=== PATIENT | male | born 1965 | race Caucasian/White ===

== ENCOUNTER 2025-02-04 10:52 | Inpatient (IN) ==
--- NOTE | 2025-01-02 09:29 | PAT Medication Instructions ---
Medication Instructions Date of Service January 02, 2025 Home Medications acetaminophen 500 mg capsule 1,000 mg PO Q8H PRN Pain carbidopa 87.5 mg-levodopa ER 350 mg capsule,immed and extend release (Crexont) 2 cap PO 5XD losartan 50 mg tablet 25 mg PO BID Continue as directed acetaminophen 500 mg capsule 1,000 mg PO Q8H PRN Pain (if needed) carbidopa 87.5 mg-levodopa ER 350 mg capsule,immed and extend release (Crexont) 2 cap PO 5XD DO NOT take the morning of surgery losartan 50 mg tablet 25 mg PO BID MORNING OF SURGERY: NOTHING TO EAT OR DRINK AFTER MIDNIGHT Other Notes If you have any questions please call us at [phone] or [phone] or [phone] or [phone]
--- NOTE | 2025-01-09 10:28 | Anesthesiology Consultation ---
Date of Service January 09, 2025 Assessment & Plan (1) Encounter for pre-operative examination: - time schedule for Parkinson medication regimen as confirmed in EMR. I listened to their concerns regarding patient receiving medications on time in clinic. I advised that he continue his home medication as advised prior to surgery and that past surgery management will be to nursing staff/Dr. Alfred's management. They plan to bring his home medications to hospital to give to nursing with emphasis that he receives medications at specific timing per his neurologist. They declined day of surgery request if his wanted to remain overnight. They are aware anesthesia/PAT cannot manage this after surgery, they expressed appreciation for discussion and denied additional questions or concerns. Chart Review Chart Review: Acceptable Risk for Surgery and Patient seen in Pre Admission Testing Teaching & Discussion Pre-Anesthesia Teaching/Discussion Notes: Instructed NPO after midnight before surgery, except medications with 15 cc of water. Medication instructions provided according to the PAT guidelines. History Surgery Operation Date: 02/04/25 10:05 Proposed Procedures p L3-L5 Decompression and Fusion - Kael Alfred, Height/Weight Height: 5 ft 10 in Weight: 91.8 kg Allergies Allergy/AdvReac Type Severity Reaction Status Date / Time meperidine [From Demerol] AdvReac Mild Flushing/hot Verified 01/02/25 08:12 feeling Medications Home Medications Medication Instructions Recorded Confirmed Last Taken acetaminophen 500 mg capsule 1,000 mg PO Q8H PRN Pain 01/02/25 01/02/25 Unknown carbidopa 87.5 mg-levodopa ER 350 2 cap PO 5XD 01/02/25 01/02/25 Unknown mg capsule,immed and extend release (Crexont) losartan 50 mg tablet 25 mg PO BID 01/02/25 01/02/25 Unknown Past Medical History Medical History (Updated 01/09/25 @ 10:53 by Heather Holliday PA-C) Borderline high cholesterol Hemochromatosis phlebotomy last done>12/26/24-states next phlebotomy will be after surgery History of kidney stones History of stomach cancer 2012-surgery for tumor excision Hx of diverticulitis of colon last flare 2004 Hypertension controlled, stable per pt Parkinson disease patient is on time specific dosing-see instructions under medication list Sleep apnea cpap>"wears half of the night" Spinal stenosis Patient denies h/o stroke, seizures, heart attack, heart failure, DM, blood clots/DVTs or blood transfusions. Exercise / Class Metabolic Activity III < 4 Walking/Shop/Light housework (denies chest discomfort or shortness of breath with usual activities) Past Surgical History Surgical History Family history of reaction to anesthesia mother>severe nausea H/O abdominal surgery tumor removed (cancer) H/O partial thyroidectomy left>benign cyst History of cholecystectomy History of colon resection ruptured colon d/t diverticulitis History of colonoscopy History of cystoscopy kidney stone removal 2023>[facility] History of esophagogastroduodenoscopy (EGD) History of tonsillectomy and adenoidectomy Hx of vasectomy S/P ACL reconstruction left Past Anesthesia History No Hx of Anesthesia Complications and Other (mother with severe PONV) History of PONV No Hx of PONV and No Hx of Motion Sickness Social History Smoking Status: Never smoker Do You Dip or Chew Tobacco: No Hx Alcohol Use: No substance use type: does not use Review of Systems Patient denies chest pain, shortness of breath, dyspnea on exertion, reflux, fever, chills, cough, wheezing, or palpitations. Physical Exam Vital Signs Vitals BP 132/80 P 63 TEMP 97.9 SP02 97% on RA RESP 18 Physical Patient resting comfortably in chair in no acute distress, alert and oriented, r esponding appropriately throughout visit Full cervical extension range of motion without pain TMD 3.5 finger breadths Mallampati Score 2 Dentition: loose [place] bridge; denies chipped or loose teeth, caps/crowns, or implants Lungs: normal respiratory effort. Good air movement, clear throughout to auscultation, no adventitious breath sounds Cardiac: regular rate and rhythm, no murmurs noted Carotid arteries: negative bruit bilat Lab Results Anesthesia Preop Results Results Anesthesia Widget: WBC 6.09 K/ul (4.8-10.8) 01/09/25 Hgb 14.9 g/dl (14.0-18.0) 01/09/25 Hct 41.8 % (42.0-52.0) L 01/09/25 Plt 190 K/uL (130-400) 01/09/25 Na 140 mmol/L (136-145) 01/09/25 K 3.6 mmol/L (3.5-5.1) 01/09/25 Cl 104 mmol/L (98-107) 01/09/25 CO2 30 mmol/L (21-32) 01/09/25 BUN 14 mg/dl (6-23) 01/09/25 Creat 0.76 mg/dl (0.6-1.4) 01/09/25 Glucose Level 95 mg/dl (70-99(Fasting)) 01/09/25 PT 10.9 Seconds (9.0-12.0) 01/09/25 PTT 28 Seconds (21-31) 01/09/25 INR 1.0 (0.9-1.1) 01/09/25 Urine Color Yellow 01/09/25 Urine Appearance Clear (Clear) 01/09/25 Urine pH 5.5 (4.5-7.5) 01/09/25 Urine Specific Jber 1.031 (1.000-1.030) H 01/09/25 Urine Protein Trace (Negative) H 01/09/25 Urine Glucose (UA) Negative (Negative) 01/09/25 Urine Ketones 1+ (Negative) H 01/09/25 Urine Blood Negative (Negative) 01/09/25 Urine Nitrite Negative (Negative) 01/09/25 Urine Bilirubin Negative (Negative) 01/09/25 Urine Urobilinogen Negative (Negative) 01/09/25 Urine Leukocyte Esterase Trace (Negative) H 01/09/25 Urine WBC (Auto) 6-10 /hpf (0-5) H 01/09/25 Urine RBC (Auto) 3-5 /hpf (0-2) H 01/09/25 Urine Hyaline Casts (Auto) 3-5 /lpf (0-2) H 01/09/25 Urine Epithelial Cells (Auto) 0-2 /hpf (0-2) 01/09/25 Urine Bacteria (Auto) None Seen (None Seen) 01/09/25 Blood Type O Positive 01/09/25 Antibody Screen NEGATIVE 01/09/25 Testing Laboratory Results Surgeon's office made aware of abnormal UA. Electrocardiogram Date: 01/09/25 Sinus bradycardia, rate 59 bpm Chest X-Ray Date: 01/09/25 Heart size and pulmonary vasculature are normal. There is mild elevation of the right hemidiaphragm. No consolidation or pleural effusion. IMPRESSION: No acute findings.
[2025-02-04] MEDS: CeleBREX 200 MG CAP PO SCH (11:16)
[2025-02-04] MEDS: GABAPENTIN 600 MG DOSE PO SCH (11:16)
[2025-02-04] MEDS: LACTATED RINGER'S 1,000 ML IV SCH ×2 (11:16→17:07)
[2025-02-04] MEDS: ACETAMINOPHEN 500 MG TAB PO SCH (11:16)
[2025-02-04] MEDS ORDERED: LIDOCAINE 2% 2 ML VIAL/AMP(20MG/ML) INFIL ONE (11:24)
[2025-02-04] MEDS ORDERED: ROCURONIUM BROMIDE 10 MG/ML 5 ML VIAL IV ONE (11:24)
[2025-02-04] MEDS ORDERED: ONDANSETRON INJ 2 MG/ML 2 ML VIAL ONE (11:24)
[2025-02-04] MEDS ORDERED: PROPOFOL IV EMULSION 10 MG/ML 20 ML VIAL IV ONE (11:24)
[2025-02-04] MEDS ORDERED: DEXAMETHASONE SOD INJ 4 MG/ML VIAL ONE (11:24)
[2025-02-04] MEDS ORDERED: MIDAZOLAM HCL 1 MG/ML 2ML VIAL ONE (11:25)
[2025-02-04] MEDS: LR 15ML/HR IV SCH (11:31)
[2025-02-04] MEDS ORDERED: ONDANSETRON INJ 2 MG/ML 2 ML VIAL IV PRN ×2 (11:35→16:45)
[2025-02-04] MEDS ORDERED: ATROPINE SULFATE 0.1 MG/ML 10ML SYR IV PRN (11:35)
[2025-02-04] MEDS ORDERED: HYDROmorphone INJ 1 MG/ML SYRINGE IV PRN (11:35)
--- NOTE | 2025-02-04 12:00 | History & Physical Bridge Note ---
Date of Service February 04, 2025 History & Physical Bridge Note I have examined the patient, reviewed the History & Physical and in the interval since the performance of the History & Physical I have noted the following changes of clinical significance: no changes noted
--- NOTE | 2025-02-04 12:01 | History & Physical Report ---
Date of Service February 04, 2025 Assessment & Plan (1) Multilevel lumbosacral spondylosis with radiculopathy: Plan: L3-L5 decompression and fusion History of Present Illness Chief Complaint: Back and leg Primary Care Provider: Ji Banuelos PA-C This is a 59-year-old male who presents chronic persistent back and leg pain after failing course of nonoperative care is here for surgical invention. Allergies Allergy/AdvReac Type Severity Reaction Status Date / Time meperidine [From Demerol] AdvReac Mild Flushing/hot Verified 02/04/25 10:53 feeling Home Medications Medication Instructions Recorded Confirmed Type acetaminophen 500 mg capsule 1,000 mg PO Q8H PRN Pain 01/02/25 02/04/25 History carbidopa 87.5 mg-levodopa ER 350 2 cap PO 5XD 01/02/25 02/04/25 History mg capsule,immed and extend release (Crexont) losartan 50 mg tablet 25 mg PO BID 01/02/25 02/04/25 History Past Med/Surg History Problem List (Updated 02/04/25 @ 12:01 by Kael Alfred DO) Multilevel lumbosacral spondylosis with radiculopathy Medical History (Updated 02/04/25 @ 12:01 by Kael Alfred DO) Spinal stenosis History of kidney stones Hx of diverticulitis of colon last flare 2004 History of stomach cancer 2012-surgery for tumor excision Hemochromatosis phlebotomy last done>12/26/24-states next phlebotomy will be after surgery Parkinson disease patient is on time specific dosing-see instructions under medication list Borderline high cholesterol Hypertension controlled, stable per pt Sleep apnea cpap>"wears half of the night" Surgical History Family history of reaction to anesthesia mother>severe nausea S/P ACL reconstruction left Hx of vasectomy History of cystoscopy kidney stone removal 2023>[facility] History of esophagogastroduodenoscopy (EGD) History of colon resection ruptured colon d/t diverticulitis History of colonoscopy History of cholecystectomy H/O abdominal surgery tumor removed (cancer) H/O partial thyroidectomy left>benign cyst History of tonsillectomy and adenoidectomy Social History Smoking Status: Never smoker Second Hand Exposure: No; Do You Dip or Chew Tobacco: No; Hx Alcohol Use: No Preferred Language: 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
[2025-02-04] MEDS ORDERED: Nursing to Pharmacy Communication SCH (12:15)
[2025-02-04] MEDS ORDERED: LEVODOPA PO SCH ×2 (12:45→16:45)
[2025-02-04] MEDS ORDERED: CARBIDOPA PO SCH ×2 (12:45→16:45)
[2025-02-04] MEDS ORDERED: HYDROmorphone INJ 2 MG/ML SYR/VIAL ONE (13:01)
[2025-02-04] MEDS ORDERED: ePHEDrine sulfate 50 MG/5 ML SYR ONE ×2 (13:07→14:31)
[2025-02-04] MEDS ORDERED: PHENYLEPHRINE 100MCG/ML 5ML SYR ONE (13:07)
[2025-02-04] MEDS ORDERED: PHENYLEPHRINE HCL 10 MG/ML VIAL ONE (13:48)
[2025-02-04] MEDS: FLOSEAL HEMOSTATIC MATRIX 10ML TOP ONE (14:17)
[2025-02-04] MEDS: ceFAZolin 330 MG/ML 1 GM VIAL ONE (14:17)
[2025-02-04] MEDS ORDERED: SUGAMMADEX SODIUM 200 MG/2 ML VIAL IV ONE (14:18)
[2025-02-04] MEDS: BUPIVACAINE/EPINEPHRINE 0.25% 1:200,000 30 ML VIAL ONE (14:22)
--- NOTE | 2025-02-04 14:28 | Operative Report ---
Post Operative Report Pre & Post Diagnosis Operation Date: 02/04/25 11:15 Pre-Op Diagnosis: #1 multilevel lumbar spondylosis with radiculopathy #2 lumbar spondylolisthesis with radiculopathy #3 lumbar spinal stenosis Post-Op Diagnosis: Same I identified the patient and participated in the time-out.: Yes Procedure Operation Date: 02/04/25 11:15 Actual Procedures #1 lumbar decompression bilateral facetectomies and foraminotomies L2-L3 L3-L4 L4-5 for #2 posterior spinal fusion L3-L5. #3 placed a posterior instrumentation L3-L5 using Gutierrez. #4 interbody fusion L3-L4 L4-5 and #5 placement Spira 13 x 26 mm L3-L4 and 14 x 26 mm x 2 at L4-5. #6 placement locally harvested morselized autograft in the posterior gutters. #7 placement of Proteus combined with Koros in the posterior lateral gutters and os design in the interbody space. #8 application of versa wrap of the exposed dura. Surgeon Kael Alfred, Kiln Repairer Gia Monsalve Estimated Blood Loss 350 Findings Consistent with Post-Op Diagnosis Specimens None Indications This is a 59-year-old male who presents publish diagnosis of failed course of nonoperative care is here for surgical invention. Description of Procedure Patient was met with identified informed consent obtained. Patient was then taken to the operative suite underwent a patient placement position on the Fernando table atop the Lionel frame. All promises well-padded eyes inspected to ensure no external pressure placed upon them. This point the lumbar spine was prepped and draped in normal sterile fashion. Sharp dissection with the assistance of Bovie cautery from down to and exposing the lamina transverse processes of L3-L4-L5 bilaterally. from a caudal to cephalad fashion complete laminectomy of L4 L3 was performed including bilateral medial facetectomies and foraminotomies addressing severe spinal stenosis is followed by partial laminectomy of L2 with bilateral medial facetectomies addressing all subarticular stenosis. Pedicle screws and placed in L3-L4-L5 bilaterally with assistance of fluoroscopy and the purposes ziyad placed. By way of transforaminal approach on the left discectomy of L4-L5 was performed endplates created to subcortical bleeding bone and a 14 x 26 mm Spira cage tapped into position. Then proceeded to the right transforaminal region at L4-L5. Again discectomy performed. Endplates guided to subcortical bleeding bone and a second 14 x 26 mm Spira cage tapped into position. Then proceeded to L3-L4 bilateral transforaminal approach on the right complete discectomy was performed endplates guided to subcortical bleeding bone and a 13 x 26 mm Spira cage tapped into position. Please note all cages were packed with os design bone graft. The rods were then compressed locked into final position bilaterally. The transverse processes of L3 L4-5 burred to subcortical bleeding bone. Protease combined with Koros and local autograft placed in the posterior gutters. Versa wrap placed over the exposed dura. 15 round ANAYA drain inserted. The incision was then closed with 1 Vicryl fascia 2-0 Vicryl subcutaneously and 4-0 Monocryl for final skin closure. Steri-Strips sterile dressing placed. Patient waken taken to PACU stable condition. Please note Gia Monsalve was present at the entire procedure and while the patient positioning complex portions of the surgery and final skin closure. I attest to the content of the Intraoperative Record and any orders documented therein. Any exceptions are noted below.
--- NOTE | 2025-02-04 14:47 | Fluoroscopy Report ---
FL lumbar spine 2-3V CLINICAL HISTORY: L3-L5 DECOMPRESSION AND FUSION COMPARISON STUDY: 10/12/2024 FLUOROSCOPY TIME: 19 seconds FLUOROSCOPY IMAGES: 3 EXPOSURE DOSE: 15 mGy FINDINGS: Fluoroscopy was provided for lumbar metallic fusion. IMPRESSION: Intraoperative fluoroscopy. ACT 112: Negative or not required by law. Electronically signed by: Ashutosh Aiken M.D. 02/04/2025 2:45 PM
[2025-02-04] MEDS: CARBIDOPA PO SCH (15:30)
[2025-02-04] MEDS: LEVODOPA PO SCH (15:30)
--- NOTE | 2025-02-04 15:34 | Anesthesiology Progress Note ---
Date of Service February 04, 2025 Anesthesia Post Procedure Vital Signs Vital Signs: Temp Pulse Pulse Resp BP BP Pulse Ox 02/04/25 15:20 80 21 112/70 98 02/04/25 15:10 36.4 C L 79 21 116/61 97 02/04/25 15:00 80 18 101/59 L 96 02/04/25 14:50 83 16 111/63 98 02/04/25 14:44 36.9 C 86 15 104/39 L 97 02/04/25 10:45 02/04/25 10:45 36.6 C 69 16 146/92 H 95 O2 Del Method O2 Flow Rate 02/04/25 15:20 Nasal Cannula 2 02/04/25 15:10 Nasal Cannula 2 02/04/25 15:00 Oxymask 2 02/04/25 14:50 Oxymask 5 02/04/25 14:44 Oxymask 9 02/04/25 10:45 Room Air 02/04/25 10:45 Room Air Pain Intensity Bilateral Back: Pain Intensity: 6 Transfer of Care Handoff Completed per policy Notes Mental Status: alert / awake / arousable Patient Amnestic to Procedure: Yes Nausea / Vomiting: adequately controlled Pain: adequately controlled Airway Patency, RR, SpO2: stable & adequate BP & HR: stable & adequate Hydration State: stable & adequate Anesthetic Complications: no major complications apparent and Pt Satisfied with anesthetic care
[2025-02-04] MEDS ORDERED: diphenhydrAMINE Capsule 25 MG CAP PO PRN (16:45)
[2025-02-04] MEDS ORDERED: METOCLOPRAMIDE HCL INJ 5 MG/ML 2 ML VIAL IV PRN (16:45)
[2025-02-04] MEDS ORDERED: ACETAMINOPHEN 500 MG TAB PO PRN (16:45)
[2025-02-04] MEDS ORDERED: FAMOTIDINE 20 MG TAB PO PRN (16:45)
[2025-02-04] MEDS ORDERED: SOD PHOSPHATE/SOD BIPHOSPHATE ENEMA 132 ML BTL PR PRN (16:45)
[2025-02-04] MEDS ORDERED: HYDROmorphone INJ 0.5 MG/0.5 ML SYR IV PRN (16:45)
[2025-02-04] MEDS ORDERED: ONDANSETRON 4 MG OD TAB PO PRN (16:45)
[2025-02-04] MEDS ORDERED: NALOXONE HCL 0.4 MG/1 ML VIAL/CARP IV PRN (16:45)
[2025-02-04] MEDS ORDERED: LORazepam 0.5 MG TAB PO PRN (16:45)
[2025-02-04] MEDS ORDERED: DO NOT ADMINISTER FLU VACCINE PRN (16:45)
[2025-02-04] MEDS ORDERED: ACETAMINOPHEN 1,000 MG/100 ML VIAL IV PRN (16:45)
[2025-02-04] MEDS ORDERED: DO NOT ADMINISTER PNEUMOCOCCAL VACCINE PRN (16:45)
[2025-02-04] MEDS ORDERED: ALUMINUM/MAGNESIUM SUSP 30 ML UDC PO PRN (16:45)
[2025-02-04] MEDS ORDERED: MAGNESIUM HYDROXIDE SUSP 30 ML UDC PO PRN (16:45)
[2025-02-04] MEDS ORDERED: [UNRECOGNIZED DRUG - OTHER] PO SCH (16:45)
[2025-02-04] MEDS ORDERED: PROMETHAZINE 12.5 MG/50.5 ML BAG IV PRN (16:45)
--- NOTE | 2025-02-04 20:06 | Hospitalist Consultation ---
Date of Consultation February 04, 2025 Assessment & Plan (1) Multilevel lumbosacral spondylosis with radiculopathy: Final Assessment and Recommendations as follows : Lumbar radiculopathy status post surgery HTN, borderline BP postop Hypovolemic hyponatremia Postop anemia Hypokalemia, hypomagnesemia Steroid-induced hyperglycemia rule out DM CRISTIAN on CPAP GIST stomach tumor status post surgery Parkinson's disease, on Crexont maintenance tx, patient follows with [facility] hereditary hemochromatosis, periodic [facility] [facility]. Monitor lactic acid response to IVF Hold losartan for now until BP stable Replace electrolytes Follow H&H, transfuse PRBC if hemoglobin less than 7 and or for symptomatic anemia Check hemoglobin A1c with a.m. labs DVT prophylaxis. SCDs as per postop orders Thank you very much for this consultation. Dr. Fish will follow patient's progress. Text document was generated using [employer] voice recognition software. It may contain grammatical or spelling errors. Kindly contact undersigned for clarification of any documentation item in question. History of Present Illness Reason for Consultation: Medical management Requesting Physician: Dr. Alfred Attending Physician: Kael Alfred DO History of Present Illness PCP : Ji Banuelos PA-C History obtained from patient and records. Medical history significant for hypertension, CRISTIAN on CPAP, GIST stomach tumor status post surgery, Parkinson's disease, hereditary hemochromatosis, urolithiasis. Patient underwent elective surgery today for lumbar radiculopathy. Postop discomfort somewhat tolerable. Denies chest pain, SOB, dizziness. Postop BP 90- 100s Patient gives history of erratic BP readings at home, high and low which he attributes to Crexont medication for Parkinson disease. 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 Allergies Allergy/AdvReac Type Severity Reaction Status Date / Time meperidine [From Demerol] AdvReac Mild Flushing/hot Verified 02/04/25 10:53 feeling Home Medications Medication Instructions Recorded Confirmed Type acetaminophen 500 mg capsule 1,000 mg PO Q8H PRN Pain 01/02/25 02/04/25 History carbidopa 87.5 mg-levodopa ER 350 2 cap PO 5XD 01/02/25 02/04/25 History mg capsule,immed and extend release (Crexont) losartan 50 mg tablet 25 mg PO BID 01/02/25 02/04/25 History Patient History Medical History (Updated 02/04/25 @ 12:01 by Kael Alfred DO) Spinal stenosis History of kidney stones Hx of diverticulitis of colon last flare 2004 History of stomach cancer 2012-surgery for tumor excision Hemochromatosis phlebotomy last done>12/26/24-states next phlebotomy will be after surgery Parkinson disease patient is on time specific dosing-see instructions under medication l ist Borderline high cholesterol Hypertension controlled, stable per pt Sleep apnea cpap>"wears half of the night" Surgical History Family history of reaction to anesthesia mother>severe nausea S/P ACL reconstruction left Hx of vasectomy History of cystoscopy kidney stone removal 2023>[facility] History of esophagogastroduodenoscopy (EGD) History of colon resection ruptured colon d/t diverticulitis History of colonoscopy History of cholecystectomy H/O abdominal surgery tumor removed (cancer) H/O partial thyroidectomy left>benign cyst History of tonsillectomy and adenoidectomy Social History Smoking Status: Never smoker Second Hand Exposure: No; Do You Dip or Chew Tobacco: No; Hx Alcohol Use: No Preferred Language: Panamanian Head Of Maintenance Required: No Beliefs That Will Affect Care: None Current Living Situation: Spouse Feels Safe at Home: Yes Safety Concerns: Feels Safe At This Time Assistive Devices: CPAP and Glasses Review of Systems Review of Systems: As per HPI, all other systems reviewed and negative Physical Exam Physical Exam: GENERAL: Comfortable, pleasant, no respiratory distress SKIN: Pallor, warm HEENT: Alopecia, pale palpebral conjunctivae, no ptosis, dry buccal mucosa NECK : Supple, no tenderness CHEST : CTA, no tenderness HEART : RRR, no obvious murmurs ABDOMEN: Some distention, nontender EXTREMITIES : No LE swelling/tenderness, palpable pulses, no other conspicuous deformities noted NEUROLOGIC : Coherent, no facial asymmetry, no other gross focality Results & Data Results & Data Vital Signs (Past 12 Hours) Vital Signs Temp Pulse Pulse Resp BP BP Pulse Ox 02/04/25 19:33 36.3 C L 75 16 101/63 93 02/04/25 18:15 36.5 C 80 18 118/68 96 02/04/25 16:59 36.1 C L 75 15 99/57 L 93 02/04/25 16:30 36.5 C 76 20 104/65 93 02/04/25 16:15 76 17 111/64 93 02/04/25 16:00 74 14 109/67 93 02/04/25 15:45 75 18 113/78 93 02/04/25 15:30 82 18 103/72 98 02/04/25 15:20 80 21 112/70 98 02/04/25 15:10 36.4 C L 79 21 116/61 97 02/04/25 15:00 80 18 101/59 L 96 02/04/25 14:50 83 16 111/63 98 02/04/25 14:44 36.9 C 86 15 104/39 L 97 02/04/25 10:45 02/04/25 10:45 36.6 C 69 16 146/92 H 95 O2 Del Method O2 Flow Rate 02/04/25 19:33 Room Air 02/04/25 18:15 Room Air 02/04/25 16:59 Room Air 02/04/25 16:30 Room Air 02/04/25 16:15 Room Air 02/04/25 16:00 Room Air 02/04/25 15:45 Room Air 02/04/25 15:30 Nasal Cannula 2 02/04/25 15:20 Nasal Cannula 2 02/04/25 15:10 Nasal Cannula 2 02/04/25 15:00 Oxymask 2 02/04/25 14:50 Oxymask 5 02/04/25 14:44 Oxymask 9 02/04/25 10:45 Room Air 02/04/25 10:45 Room Air Laboratory Results Laboratory Results Blood Type O Positive 02/04/25 10:49 Antibody Screen NEGATIVE 02/04/25 10:49 Crossmatch See Detail 02/04/25 10:49 Impressions Lumbar Spine X-Ray 02/04/25 11:15 FL lumbar spine 2-3V CLINICAL HISTORY: L3-L5 DECOMPRESSION AND FUSION COMPARISON STUDY: 10/12/2024 FLUOROSCOPY TIME: 19 seconds FLUOROSCOPY IMAGES: 3 EXPOSURE DOSE: 15 mGy FINDINGS: Fluoroscopy was provided for lumbar metallic fusion. IMPRESSION: Intraoperative fluoroscopy. ACT 112: Negative or not required by law. Electronically signed by: Ashutosh Aiken M.D. 02/04/2025 2:45 PM Diagnostic Findings Laboratory Results WBC 15.65 K/ul (4.8-10.8) H 02/04/25 19:54 RBC 3.76 M/uL (4.70-6.10) L 02/04/25 19:54 Hgb 12.1 g/dl (14.0-18.0) L 02/04/25 19:54 Hct 32.4 % (42.0-52.0) L 02/04/25 19:54 MCV 86.2 fL (80.0-100.0) 02/04/25 19:54 MCH 32.2 pg (25.0-34.0) 02/04/25 19:54 MCHC 37.3 g/dL (32.0-36.0) H 02/04/25 19:54 RDW Std Deviation 35.8 fL (36.4-46.3) L 02/04/25 19:54 RDW Coeff of Lauro 11.6 % (11.5-14.5) 02/04/25 19:54 Plt Count 243 K/uL (130-400) 02/04/25 19:54 MPV 10.4 fL (9.4-12.4) 02/04/25 19:54 Immature Gran % (Auto) 0.4 % 02/04/25 19:54 Neut % (Auto) 96.1 % 02/04/25 19:54 Lymph % (Auto) 1.7 % 02/04/25 19:54 [place] % (Auto) 1.7 % 02/04/25 19:54 Eos % (Auto) 0.0 % 02/04/25 19:54 Baso % (Auto) 0.1 % 02/04/25 19:54 Neut # (Auto) 15.05 K/uL (1.40-6.50) H 02/04/25 19:54 Lymph # (Auto) 0.26 K/uL (1.20-3.40) L 02/04/25 19:54 [place] # (Auto) 0.26 K/uL (0.11-0.59) 02/04/25 19:54 Eos # (Auto) 0.00 K/uL (0.00-0.50) 02/04/25 19:54 Baso # (Auto) 0.02 K/uL (0.00-0.20) 02/04/25 19:54 Immature Gran # (Auto) 0.06 K/uL (0.01-0.20) 02/04/25 19:54 Anisocytosis Present 02/04/25 19:54 Sodium 132 mmol/L (136-145) L 02/04/25 19:54 Potassium 3.0 mmol/L (3.5-5.1) L 02/04/25 19:54 Chloride 88 mmol/L (98-107) L 02/04/25 19:54 Carbon Dioxide 31 mmol/L (21-32) 02/04/25 19:54 Anion Gap 13 (3-11) H 02/04/25 19:54 BUN 13 mg/dl (6-23) 02/04/25 19:54 Creatinine 0.69 mg/dl (0.6-1.4) 02/04/25 19:54 Est Cr Clr Drug Dosing 117.6 ml/min 02/04/25 19:54 eGFR 105.94 02/04/25 19:54 BUN/Creatinine Ratio 18.8 (10-20) 02/04/25 19:54 Glucose 152 mg/dl (70-99(Fasting)) H 02/04/25 19:54 Lactate 2.5 mmol/L (0.4-2.0) H* 02/04/25 19:54 Calcium 8.4 mg/dl (8.6-10.3) L 02/04/25 19:54 Magnesium 1.5 mg/dl (1.7-2.4) L 02/04/25 19:54 Blood Type O Positive 02/04/25 10:49 Antibody Screen NEGATIVE 02/04/25 10:49 Crossmatch See Detail 02/04/25 10:49 Impressions Lumbar Spine X-Ray 02/04/25 11:15 FL lumbar spine 2-3V CLINICAL HISTORY: L3-L5 DECOMPRESSION AND FUSION COMPARISON STUDY: 10/12/2024 FLUOROSCOPY TIME: 19 seconds FLUOROSCOPY IMAGES: 3 EXPOSURE DOSE: 15 mGy FINDINGS: Fluoroscopy was provided for lumbar metallic fusion.
[2025-02-04] MEDS: HYDROmorphone INJ 1 MG/ML SYRINGE IV PRN (20:08)
[2025-02-04] MEDS: DOCUSATE SODIUM/SENNA 50/8.6MG TAB PO SCH (20:13)
[2025-02-04 20:39] LABS: Anion Gap 13.0 (3-11); Blood Urea Nitrogen 13.0 mg/dl (6-23); Calcium 8.4 mg/dl (8.6-10.3); Carbon Dioxide 31.0 mmol/L (21-32); Chloride 88.0 mmol/L (98-107); Creatinine Clr Calc Pharmacy 117.6 ml/min; Glucose 152.0 mg/dl (70-99(Fasting)); Magnesium 1.5 mg/dl (1.7-2.4); Potassium 3.0 mmol/L (3.5-5.1); Sodium 132.0 mmol/L (136-145)
[2025-02-04 20:45] LABS: Hematocrit (blood only) 32.4 % (42.0-52.0); Hemoglobin 12.1 g/dl (14.0-18.0); Mean Corpuscular Hemoglobin 32.2 pg (25.0-34.0); Mean Corpuscular Volume 86.2 fL (80.0-100.0); Platelet Count 243 K/uL (130-400); RDW Standard Deviation 35.8 fL (36.4-46.3); Red Blood Count 3.76 M/uL (4.70-6.10); White Blood Count 15.65 K/ul (4.8-10.8)
[2025-02-04 20:46] LABS: Anisocytosis Present; Immature Granulocytes # (auto) 0.06 K/uL (0.01-0.20); Immature Granulocytes % (auto) 0.4 %
[2025-02-04] MEDS ORDERED: LOSARTAN POTASSIUM 25 MG TAB PO SCH (21:00)
[2025-02-04] MEDS: POTASSIUM CHLORIDE CRTAB 20 MEQ TABCR PO STA (22:40)
[2025-02-04] MEDS: MAGNESIUM SULFATE / D5W 1 GM/100 ML BAG IV SCH (22:40)
[2025-02-04] MEDS: POTASSIUM CHLORIDE 20 MEQ in LACTATED RINGER'S 1,000 ML IV SCH (22:41)
[2025-02-05 00:47] LABS: Base Excess VBG 6.9 mEq/L; HCO3 VBG 32 mmol/L; Oxygen Saturation VBG 89.9 %; PCO2 VBG 46 mmHg (38-50); PO2 VBG 55 mmHg; pH VBG 7.45 (7.36-7.41)
[2025-02-05 00:58] LABS: Sodium 130.0 mmol/L (136-145)
[2025-02-05 01:15] LABS: Thyroid Stimulating Hormone 1.094 uIu/ml (0.300-4.500)
[2025-02-05] MEDS: LACTATED RINGER'S 1,000 ML IV ONE (02:06)
[2025-02-05] MEDS: NSS + 20MEQ KCL 20 MEQ/1,000 ML BAG IV ONE (02:08)
[2025-02-05] MEDS: POTASSIUM CHLORIDE 20 MEQ in LACTATED RINGER'S 1,000 ML IV ONE (02:15)
[2025-02-05 04:12] LABS: Appearance Urine Clear (Clear); Glucose Urine UA Negative (Negative)
[2025-02-05] MEDS: MAGNESIUM SULFATE / D5W 1 GM/100 ML BAG IV ONE (04:18)
[2025-02-05 04:22] LABS: Bacteria Urine Automated None Seen (None Seen); Epithelial Cell Urine Auto 0-2 /hpf (0-2); RBC Urine Automated 0-2 /hpf (0-2)
[2025-02-05 05:50] LABS: Hematocrit (blood only) 29.4 % (42.0-52.0); Hemoglobin 10.8 g/dl (14.0-18.0); Immature Granulocytes # (auto) 0.05 K/uL (0.01-0.20); Immature Granulocytes % (auto) 0.4 %; Mean Corpuscular Hemoglobin 32.0 pg (25.0-34.0); Mean Corpuscular Volume 87.2 fL (80.0-100.0); Platelet Count 222 K/uL (130-400); RDW Standard Deviation 36.5 fL (36.4-46.3); Red Blood Count 3.37 M/uL (4.70-6.10); White Blood Count 13.48 K/ul (4.8-10.8)
[2025-02-05] MEDS: POLYETHYLENE (MIRALAX) 17 GM PACK PO SCH (05:52)
[2025-02-05 06:04] LABS: Anion Gap 5.0 (3-11); Blood Urea Nitrogen 13.0 mg/dl (6-23); Calcium 8.0 mg/dl (8.6-10.3); Carbon Dioxide 33.0 mmol/L (21-32); Chloride 91.0 mmol/L (98-107); Creatinine Clr Calc Pharmacy 119.3 ml/min; Glucose 111.0 mg/dl (70-99(Fasting)); Potassium 3.4 mmol/L (3.5-5.1); Sodium 129.0 mmol/L (136-145)
[2025-02-05] MEDS: POTASSIUM CHLORIDE CRTAB 20 MEQ TABCR PO STA (06:35)
[2025-02-05 07:46] LABS: Hemoglobin A1C 5.2 % (4.5-5.6)
[2025-02-05] MEDS: dexAMETHasone 6 MG in SYRINGE 0 ML IV SCH (07:54)
--- NOTE | 2025-02-05 07:56 | Hospitalist Progress Note ---
<Statement entered by Obie Fish, DO - 02/05/25 16:40> I have seen and examined the patient and have discussed the case with the advance practice provider. I have reviewed the advanced practitioner's documentation, and I agree with, and take responsibility for that plan of care. Reviewed hyponatremia lab studies with [place]. Difficult to interpret in the setting of recent surgery, anesthesia, IV fluids, excetra. Will continue to monitor sodium. Suspects also hyponatremia may be somewhat chronic due to poor solute intake and excessive water intake. Will consider fluid restriction Patient gave extensive history of gagging which he associated possibly with anxiety. He has been dealing with this for quite some time but has not sought any medical intervention. Discussed the possibly trying a little anxiolytic prior to meals here in the hospital and he was agreeable. Trial of Ativan 0.5 mg prior to meals. I spent a total of 19 minutes coordinating, documenting, and providing care for this patient excluding time spent by another provider/QHP. Date of Service February 05, 2025 Assessment & Plan (1) Multilevel lumbosacral spondylosis with radiculopathy: Plan 59 year old male with PMH significant for hereditary hemochromatosis, dyslipidemia, CRISTIAN, hypertension, Parkinson's disease, history of malignant gastric stromal tumor, and multilevel lumbosacral spondylosis with radiculopathy who underwent L3-L5 decompression and fusion on 02/04/[address] Alfred. We have been consulted for post operative medical management. Multilevel lumbosacral spondylosis with radiculopathy POD#1 L3-L5 decompression and fusion on 02/04/[address] 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 Please see addendum. I spent a total of 50 minutes coordinating, documenting and providing care for this patient excluding time spent in the performance of separately billed services or time spent by another provider/QHP. Admission and Anticipated Discharge Date Admission Date: February 04, 2025 Subjective Patient seen sitting up in his chair Reports minimal pain in low back Notes numbness of bilateral feet is improved Worked with PT and OT Notes poor appetite and gagging but this is chronic Review of Systems Review of Systems: All systems reviewed & are unremarkable except as noted in Subjective Physical Exam Physical Exam: General/Psych: WD/WN, sitting up in chair, NAD, conversing easily Head: normocephalic, atraumatic Eyes: normal inspection, PERRL, conjunctivae pink ENT: external ear and nose normal, oropharynx normal Neck: normal visual inspection, trachea midline Respiratory: normal respiratory effort, lungs clear to auscultation, no wheeze/rales/rhonchi, no accessory muscle use Cardiovascular: regular rate and rhythm, no murmur/rub/gallop, no JVD Extremities: no cyanosis or clubbing, normal peripheral pulses, no BLE edema, sensation intact BLE Abdomen/GI: normal bowel sounds, soft, nontender Neurologic/MSK: A+Ox3, motor strength 5/5, moves all extremities Skin: no rashes, normal color, warm and dry, island dressing c/d/i, ANAYA drain with sanguinous output Results & Data Results & Data Vital Signs (Past 12 Hours) Vital Signs Temp Pulse Pulse Resp BP BP Pulse Ox 02/05/25 07:25 36.5 C 65 16 105/70 95 02/05/25 03:38 36.6 C 69 16 102/67 96 02/04/25 23:00 36.3 C L 80 16 93/62 L 93 O2 Del Method 02/05/25 07:25 Room Air 02/05/25 03:38 Room Air 02/04/25 23:00 Room Air Laboratory Results Short CBC 02/04/25 02/05/25 Range/Units 19:54 05:18 WBC 15.65 H 13.48 H (4.8-10.8) K/ul Hgb 12.1 L 10.8 L (14.0-18.0) g/dl Hct 32.4 L 29.4 L (42.0-52.0) % Plt Count 243 222 (130-400) K/uL BMP 02/04/25 02/05/25 02/05/25 19:54 00:11 05:18 Sodium 132 L 130 L 129 L Potassium 3.0 L 3.4 L Chloride 88 L 91 L Carbon Dioxide 31 33 H BUN 13 13 Creatinine 0.69 0.68 Glucose 152 H 111 H Calcium 8.4 L 8.0 L Urine 02/05/25 Range/Units Unknown Urine Color Yellow Urine Appearance Clear (Clear) Urine pH 5.5 (4.5-7.5) Ur Specific [place] >= 1.030 (1.000-1.030) Urine Protein 1+ H (Negative) Urine Glucose (UA) Negative (Negative) I have independently reviewed and interpreted patient's labs including CBC and BMP. Medications Administered Current Inpatient Medications Acetaminophen (Acetaminophen 500 Mg Tab) 1,000 mg PO Q8H PRN PRN Reason: MILD Pain (1,2,3) & Pre PT Stop: 03/06/25 16:44 Al Hydrox/Mg Hydrox/Simethicone (Aluminum/Magnesium Susp 30 Ml Udc) 30 ml PO Q6H PRN PRN Reason: Dyspepsia Stop: 03/06/25 16:44 Bisacodyl (Bisacodyl 10 Mg Supp) 10 mg HI DAILY PRN PRN Reason: Constipation Stop: 03/06/25 16:44 Diphenhydramine HCl (Diphenhydramine Capsule 25 Mg Cap) 25 mg PO Q6H PRN PRN Reason: Allergic Rhinitis/Insomnia Stop: 03/06/25 16:44 Famotidine (Famotidine 20 Mg Tab) 20 mg PO Q12H PRN PRN Reason: Dyspepsia Stop: 03/06/25 16:44 Hydromorphone HCl (Hydromorphone Inj 0.5 Mg/0.5 Ml Syr) 0.5 mg IV Q3H PRN PRN Reason: MODERATE Pain(4,5,6)/Pre PT Stop: 02/18/25 16:44 Hydromorphone HCl (Hydromorphone Inj 1 Mg/Ml Syringe) 1 mg IV Q3H PRN PRN Reason: SEVERE Pain (7,8,9,10) Stop: 02/18/25 16:44 Last Admin: 02/04/25 20:08 Dose: 1 mg Hydroxyzine HCl (Hydroxyzine Hcl 25 Mg Tab) 25 mg PO Q8H PRN PRN Reason: Anxiety Stop: 03/06/25 16:44 Acetaminophen (Ofirmev) 1,000 mg in 100 mls @ 400 mls/hr IV Q8H PRN PRN Reason: MILD Pain (1,2,3) & Pre PT Stop: 02/05/25 16:45 Promethazine HCl (Phenergan) 12.5 mg in 50.5 mls @ 202 mls/hr IV Q6H PRN PRN Reason: Nausea And Vomiting Stop: 03/06/25 16:44 Dexamethasone 6 mg/ Syringe 1.5 mls @ 1 mls/min IV DAILY JONNATHAN Stop: 02/07/25 09:02 Last Admin: 02/05/25 07:54 Dose: 1 mls/min Cefazolin Sodium (Ancef 2000mg) 2,000 mg in 15 mls @ 3.75 mls/min IV Q8H JONNATHAN Stop: 02/12/25 10:59 Last Admin: 02/05/25 11:15 Dose: 3.75 mls/min Influenza Virus Vaccine Quadrival (Do Not Administer Flu Vaccine) 1 each N/A PRN PRN PRN Reason: Notification Stop: 03/06/25 16:44 Lorazepam (Lorazepam 2 Mg/1 Ml Vial) 0.5 mg IV Q8H PRN PRN Reason: Sedation/Anxiety Stop: 03/06/25 16:44 Lorazepam (Lorazepam 0.5 Mg Tab) 0.25 mg PO AC JONNATHAN Stop: 03/07/25 16:29 Magnesium Hydroxide (Magnesium Hydroxide Susp 30 Ml Udc) 30 ml PO Q24H PRN PRN Reason: Constipation Stop: 03/06/25 16:44 Metoclopramide HCl (Metoclopramide Hcl Inj 5 Mg/Ml 2 Ml Vial) 10 mg IV Q6H PRN PRN Reason: Nausea &/or Vomiting Stop: 03/06/25 16:44 Naloxone HCl (Naloxone Hcl 0.4 Mg/1 Ml Vial/Carp) 0.1 mg IV Q5M PRN PRN Reason: Oversedation/Resp depression Stop: 03/06/25 16:44 Carbidopa/Levodopa 87.5 Mg/350mg Er Capsules--Non- Formulary Patient's Own Med 2 each PO DAILY@0600,1000,1300,1700,1900 JONNATHAN Stop: 03/06/25 12:44 Last Admin: 02/05/25 14:09 Dose: 2 cap Ondansetron HCl (Ondansetron Inj 2 Mg/Ml 2 Ml Vial) 4 mg IV Q6H PRN PRN Reason: Nausea &/or Vomiting Stop: 03/06/25 16:44 Ondansetron HCl (Ondansetron 4 Mg Od Tab) 4 mg PO Q6H PRN PRN Reason: Nausea Stop: 03/06/25 16:44 Oxycodone HCl (Oxycodone Hcl Ir 5 Mg Tab (Immediate Release)) 5 - 10 mg PO Q4H PRN PRN Reason: MOD/SEV Pain & Pre PT Stop: 02/18/25 16:44 Last Admin: 02/05/25 06:00 Dose: 10 mg Pneumococcal Polyvalent Vaccine (Do Not Administer Pneumococcal Vaccine) 1 each N/A PRN PRN PRN Reason: Notification Stop: 03/06/25 16:44 Polyethylene Glycol (Polyethylene (Miralax) 17 Gm Pack) 17 gm PO Q6 JONNATHAN Stop: 03/07/25 05:59 Last Admin: 02/05/25 11:12 Dose: Not Given Senna/Docusate Sodium (Docusate Sodium/Senna 50/8.6mg Tab) 2 tab PO HS JONNATHAN Stop: 03/06/25 20:59 Last Admin: 02/04/25 20:13 Dose: Not Given Sodium Biphosphate/Sodium Phosphate (Sod Phosphate/Sod Biphosphate Enema 132 Ml Btl) 132 ml HI ONE PRN PRN Reason: Constipation Stop: 03/06/25 16:44 Tramadol HCl (Tramadol Hcl 50 Mg Tablet) 50 - 100 mg PO Q4H PRN PRN Reason: MOD/SEV Pain & Pre PT Stop: 03/06/25 16:44
--- NOTE | 2025-02-05 08:21 | Orthopedic Progress Note ---
Date of Service February 05, 2025 Assessment & Plan (1) Multilevel lumbosacral spondylosis with radiculopathy: Plan: Gabe is postoperative day 1 status post L3-5 decompression and fusion. He is can start physical therapy today. Maintain ANAYA drain. Continue with pain control. DVT prophylaxis is in the form of teds and SCDs. Will also have case management will meet with the patient today to discuss home versus rehab options Admission and Anticipated Discharge Date Admission Date: February 04, 2025 Subjective Gabe is postoperative day 1 L3-5 decompression and fusion. He has had an uneventful evening. Leg pain improved. Back pain is controlled. He has not been out of bed yet. ANAYA drain output last shift is 90 cc. H&H this morning are 10.8 and 29.4 respectively. Review of Systems Review of Systems: All systems reviewed & are unremarkable except as noted in HPI & below Physical Exam Physical Exam: He is sitting up in bed eating breakfast in no acute distress Alert and oriented x 3 Strength intact bilateral lower extremities Lumbar dressing is clean dry intact with functioning ANAYA drain Results & Data Vital Signs (Past 12 Hours) Vital Signs Temp Pulse Pulse Resp BP BP Pulse Ox 02/05/25 07:25 36.5 C 65 16 105/70 95 02/05/25 03:38 36.6 C 69 16 102/67 96 02/04/25 23:00 36.3 C L 80 16 93/62 L 93 O2 Del Method 02/05/25 07:25 Room Air 02/05/25 03:38 Room Air 02/04/25 23:00 Room Air
[2025-02-05] MEDS: POTASSIUM CHLORIDE CRTAB 20 MEQ TABCR PO ONE (15:23)
[2025-02-05] MEDS: LORazepam 0.5 MG TAB PO SCH (17:21)
[2025-02-06] MEDS ORDERED: Nursing to Pharmacy Communication SCH (01:30)
[2025-02-06] MEDS: LEVODOPA PO SCH (05:56)
[2025-02-06] MEDS: CARBIDOPA PO SCH (05:56)
[2025-02-06 06:28] LABS: Hematocrit (blood only) 29.8 % (42.0-52.0); Hemoglobin 11.1 g/dl (14.0-18.0); Mean Corpuscular Hemoglobin 32.6 pg (25.0-34.0); Mean Corpuscular Volume 87.6 fL (80.0-100.0); Platelet Count 197 K/uL (130-400); RDW Standard Deviation 36.5 fL (36.4-46.3); Red Blood Count 3.40 M/uL (4.70-6.10); White Blood Count 11.45 K/ul (4.8-10.8)
[2025-02-06 06:46] LABS: Anion Gap 7.0 (3-11); Blood Urea Nitrogen 11.0 mg/dl (6-23); Calcium 8.2 mg/dl (8.6-10.3); Carbon Dioxide 31.0 mmol/L (21-32); Chloride 93.0 mmol/L (98-107); Creatinine Clr Calc Pharmacy 130.8 ml/min; Glucose 105.0 mg/dl (70-99(Fasting)); Potassium 3.4 mmol/L (3.5-5.1); Sodium 131.0 mmol/L (136-145)
[2025-02-06] MEDS: POTASSIUM CHLORIDE CRTAB 20 MEQ TABCR PO ONE (08:18)
--- NOTE | 2025-02-06 08:28 | Hospitalist Progress Note ---
<Statement entered by Obie Fish, DO - 02/06/25 15:14> I have seen and examined the patient and have discussed the case with the advance practice provider. I have reviewed the advanced practitioner's documentation, and I agree with, and take responsibility for that plan of care. Patient reports feeling that the low dose of Ativan before meals significantly helped his gagging and his ability to eat. Feel as though this low-dose I will benzodiazepine benefits patient significantly greater than any risks. Will continue during this hospitalization and anticipate continuing at home if continues to do well. Patient did fairly well with eating breakfast. Patient sodium is improving as his solute intake improves and some mild fluid restriction. Continue with therapies Further care as outlined below I spent a total of 18 minutes coordinating, documenting, and providing care for this patient excluding time spent by another provider/QHP. Date of Service February 06, 2025 Assessment & Plan (1) Multilevel lumbosacral spondylosis with radiculopathy: (2) S/P lumbar spinal fusion: (3) Acute blood loss anemia: (4) Hyponatremia: (5) Leukocytosis: (6) Hypertension: (7) Parkinson disease: (8) Sleep apnea: Plan 59 year old male with PMH significant for hereditary hemochromatosis, dyslipidemia, CRISTIAN, hypertension, Parkinson's disease, history of malignant gastric stromal tumor, and multilevel lumbosacral spondylosis with radiculopathy who underwent L3-L5 decompression and fusion on 02/04/[address] Alfred. We have been consulted for post operative medical management. Multilevel lumbosacral spondylosis with radiculopathy POD#2 L3-L5 decompression and fusion on 02/04/[address] 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 Please see addendum. I spent a total of 35 minutes coordinating, documenting and providing care for this patient excluding time spent in the performance of separately billed services or time spent by another provider/QHP. Admission and Anticipated Discharge Date Admission Date: February 04, 2025 Subjective Patient seen sitting up in chair Reports tenderness in low spine Bilateral feet still numb but improved compared to prior to surgery Ambulating well with PT Plans to dc to home Tuesday Review of Systems Review of Systems: All systems reviewed & are unremarkable except as noted in Subjective Physical Exam Physical Exam: General/Psych: WD/WN, sitting up in chair, NAD, conversing easily Head: normocephalic, atraumatic Eyes: normal inspection, PERRL, conjunctivae pink ENT: external ear and nose normal, oropharynx normal Neck: normal visual inspection, trachea midline Respiratory: normal respiratory effort, lungs clear to auscultation, no wheeze/rales/rhonchi, no accessory muscle use Cardiovascular: regular rate and rhythm, no murmur/rub/gallop, no JVD Extremities: no cyanosis or clubbing, normal peripheral pulses, no BLE edema, sensation intact BLE Abdomen/GI: normal bowel sounds, soft, nontender Neurologic/MSK: A+Ox3, motor strength 5/5, moves all extremities Skin: no rashes, normal color, warm and dry, island dressing c/d/i, ANAYA drain with sanguinous output Results & Data Results & Data Vital Signs (Past 12 Hours) Vital Signs Temp Pulse Pulse Resp BP Pulse Ox O2 Del Method 02/06/25 07:52 36.6 C 89 16 136/82 99 Room Air 02/05/25 23:00 36.7 C 89 18 135/82 94 Room Air Laboratory Results Short CBC 02/06/25 Range/Units 05:45 WBC 11.45 H (4.8-10.8) K/ul Hgb 11.1 L (14.0-18.0) g/dl Hct 29.8 L (42.0-52.0) % Plt Count 197 (130-400) K/uL BMP 02/05/25 02/06/25 12:05 05:45 Sodium 129 L 131 L Potassium 3.4 L Chloride 93 L Carbon Dioxide 31 BUN 11 Creatinine 0.62 Glucose 105 H Calcium 8.2 L I have independently reviewed and interpreted patient's labs including CBC and BMP. Medications Administered Current Inpatient Medications Acetaminophen (Acetaminophen 500 Mg Tab) 1,000 mg PO Q8H PRN PRN Reason: MILD Pain (1,2,3) & Pre PT Stop: 03/06/25 16:44 Al Hydrox/Mg Hydrox/Simethicone (Aluminum/Magnesium Susp 30 Ml Udc) 30 ml PO Q6H PRN PRN Reason: Dyspepsia Stop: 03/06/25 16:44 Bisacodyl (Bisacodyl 10 Mg Supp) 10 mg [place] DAILY PRN PRN Reason: Constipation Stop: 03/06/25 16:44 Diphenhydramine HCl (Diphenhydramine Capsule 25 Mg Cap) 25 mg PO Q6H PRN PRN Reason: Allergic Rhinitis/Insomnia Stop: 03/06/25 16:44 Famotidine (Famotidine 20 Mg Tab) 20 mg PO Q12H PRN PRN Reason: Dyspepsia Stop: 03/06/25 16:44 Hydromorphone HCl (Hydromorphone Inj 0.5 Mg/0.5 Ml Syr) 0.5 mg IV Q3H PRN PRN Reason: MODERATE Pain(4,5,6)/Pre PT Stop: 02/18/25 16:44 Hydromorphone HCl (Hydromorphone Inj 1 Mg/Ml Syringe) 1 mg IV Q3H PRN PRN Reason: SEVERE Pain (7,8,9,10) Stop: 02/18/25 16:44 Last Admin: 02/04/25 20:08 Dose: 1 mg Hydroxyzine HCl (Hydroxyzine Hcl 25 Mg Tab) 25 mg PO Q8H PRN PRN Reason: Anxiety Stop: 03/06/25 16:44 Promethazine HCl (Phenergan) 12.5 mg in 50.5 mls @ 202 mls/hr IV Q6H PRN PRN Reason: Nausea And Vomiting Stop: 03/06/25 16:44 Dexamethasone 6 mg/ Syringe 1.5 mls @ 1 mls/min IV DAILY JONNATHAN Stop: 02/07/25 09:02 Last Admin: 02/06/25 08:18 Dose: 1 mls/min Cefazolin Sodium (Ancef 2000mg) 2,000 mg in 15 mls @ 3.75 mls/min IV Q8H [facility] Stop: 02/12/25 10:59 Last Admin: 02/06/25 11:05 Dose: 3.75 mls/min Influenza Virus Vaccine Quadrival (Do Not Administer Flu Vaccine) 1 each N/A PRN PRN PRN Reason: Notification Stop: 03/06/25 16:44 Lorazepam (Lorazepam 2 Mg/1 Ml Vial) 0.5 mg IV Q8H PRN PRN Reason: Sedation/Anxiety Stop: 03/06/25 16:44 Lorazepam (Lorazepam 0.5 Mg Tab) 0.25 mg PO AC [facility] Stop: 03/07/25 16:29 Last Admin: 02/06/25 11:01 Dose: 0.25 mg Magnesium Hydroxide (Magnesium Hydroxide Susp 30 Ml Udc) 30 ml PO Q24H PRN PRN Reason: Constipation Stop: 03/06/25 16:44 Metoclopramide HCl (Metoclopramide Hcl Inj 5 Mg/Ml 2 Ml Vial) 10 mg IV Q6H PRN PRN Reason: Nausea &/or Vomiting Stop: 03/06/25 16:44 Naloxone HCl (Naloxone Hcl 0.4 Mg/1 Ml Vial/Carp) 0.1 mg IV Q5M PRN PRN Reason: Oversedation/Resp depression Stop: 03/06/25 16:44 Carbidopa/Levodopa 87.5 Mg/350mg Er Capsules--Non- Formulary Patient's Own Med 2 each PO DAILY@0600,1000,1400,1800,2300 [facility] Stop: 03/08/25 05:59 Last Admin: 02/06/25 11:01 Dose: 1 cap Ondansetron HCl (Ondansetron Inj 2 Mg/Ml 2 Ml Vial) 4 mg IV Q6H PRN PRN Reason: Nausea &/or Vomiting Stop: 03/06/25 16:44 Ondansetron HCl (Ondansetron 4 Mg Od Tab) 4 mg PO Q6H PRN PRN Reason: Nausea Stop: 03/06/25 16:44 Oxycodone HCl (Oxycodone Hcl Ir 5 Mg Tab (Immediate Release)) 5 - 10 mg PO Q4H PRN PRN Reason: MOD/SEV Pain & Pre PT Stop: 02/18/25 16:44 Last Admin: 02/05/25 06:00 Dose: 10 mg Pneumococcal Polyvalent Vaccine (Do Not Administer Pneumococcal Vaccine) 1 each N/A PRN PRN PRN Reason: Notification Stop: 03/06/25 16:44 Polyethylene Glycol (Polyethylene (Miralax) 17 Gm Pack) 17 gm PO Q6 JONNATHAN Stop: 03/07/25 05:59 Last Admin: 02/06/25 11:05 Dose: 17 gm Senna/Docusate Sodium (Docusate Sodium/Senna 50/8.6mg Tab) 2 tab PO HS JONNATHAN Stop: 03/06/25 20:59 Last Admin: 02/05/25 21:05 Dose: Not Given Sodium Biphosphate/Sodium Phosphate (Sod Phosphate/Sod Biphosphate Enema 132 Ml Btl) 132 ml [place] ONE PRN PRN Reason: Constipation Stop: 03/06/25 16:44 Tramadol HCl (Tramadol Hcl 50 Mg Tablet) 50 - 100 mg PO Q4H PRN PRN Reason: MOD/SEV Pain & Pre PT Stop: 03/06/25 16:44 Last Admin: 02/06/25 08:23 Dose: 100 mg
--- NOTE | 2025-02-06 09:46 | Orthopedic Progress Note ---
Date of Service February 06, 2025 Assessment & Plan (1) Multilevel lumbosacral spondylosis with radiculopathy: Plan: At this time we will continue physical therapy monitor his ANAYA output. He is interested in returning home. Will see how he progresses over the next few days and this may be very likely. Admission and Anticipated Discharge Date Admission Date: February 04, 2025 Subjective Back pain is controlled leg symptoms improved. He is ambulating well. Physical Exam Physical Exam: Patient is in the chair at the bedside. He is constricted testing. Is comfortable. Results & Data Vital Signs (Past 12 Hours) Vital Signs Temp Pulse Pulse Resp BP Pulse Ox O2 Del Method 02/06/25 07:52 36.6 C 89 16 136/82 99 Room Air 02/05/25 23:00 36.7 C 89 18 135/82 94 Room Air Queries Orthopedic Spine Acute Posthemorrhagic Anemia: Yes
[2025-02-07 07:36] LABS: Anion Gap 9.0 (3-11); Blood Urea Nitrogen 13.0 mg/dl (6-23); Calcium 8.7 mg/dl (8.6-10.3); Carbon Dioxide 31.0 mmol/L (21-32); Chloride 90.0 mmol/L (98-107); Creatinine Clr Calc Pharmacy 137.5 ml/min; Glucose 96.0 mg/dl (70-99(Fasting)); Potassium 3.7 mmol/L (3.5-5.1); Sodium 130.0 mmol/L (136-145)
[2025-02-07 07:50] LABS: Hematocrit (blood only) 32.2 % (42.0-52.0); Hemoglobin 11.7 g/dl (14.0-18.0); Mean Corpuscular Hemoglobin 32.1 pg (25.0-34.0); Mean Corpuscular Volume 88.2 fL (80.0-100.0); Platelet Count 226 K/uL (130-400); RDW Standard Deviation 36.6 fL (36.4-46.3); Red Blood Count 3.65 M/uL (4.70-6.10); White Blood Count 9.89 K/ul (4.8-10.8)
--- NOTE | 2025-02-07 09:28 | Orthopedic Progress Note ---
Date of Service February 07, 2025 Assessment & Plan (1) S/P lumbar spinal fusion: Plan: Gabe is postoperative day 3 status post multilevel lumbar decompression and fusion. Will continue with ambulation and physical therapy today. Maintain ANAYA drain. Continue with pain control. DVT prophylaxis is in the form of teds and SCDs. Anticipate discharge home tomorrow Admission and Anticipated Discharge Date Admission Date: February 04, 2025 Subjective Gabe is postoperative day 3 status post lumbar decompression and fusion multilevel. Pain is controlled. Leg symptoms improved. Yesterday in physical therapy ambulating 400 feet. ANAYA drain output last shift is 15 cc. No other complaints. Review of Systems Review of Systems: All systems reviewed & are unremarkable except as noted in HPI & below Physical Exam Physical Exam: He sitting in a chair in no acute distress Alert and oriented x 3 Lumbar dressing is clean dry and intact with functioning ANAYA drain strength int act bilateral lower extremities Results & Data Vital Signs (Past 12 Hours) Vital Signs Temp Pulse Resp BP Pulse Ox O2 Del Method 02/07/25 07:54 36.5 C 60 16 124/75 96 Room Air 02/06/25 22:58 36.6 C 75 16 159/89 H 97 Room Air Queries Orthopedic Spine Acute Posthemorrhagic Anemia: Yes
--- NOTE | 2025-02-07 14:52 | Hospitalist Progress Note ---
Date of Service February 07, 2025 Assessment & Plan (1) Multilevel lumbosacral spondylosis with radiculopathy: (2) S/P lumbar spinal fusion: (3) Acute blood loss anemia: (4) Hyponatremia: (5) Leukocytosis: (6) Hypertension: (7) Parkinson disease: (8) Sleep apnea: Plan This is a 59 year old male with PMH significant for hereditary hemochromatosis, dyslipidemia, CRISTIAN, hypertension, Parkinson's disease, history of malignant gastric stromal tumor, and multilevel lumbosacral spondylosis with radiculopathy who underwent L3-L5 decompression and fusion on 02/04/[address] Alfred. We have been consulted for post operative medical management. Multilevel lumbosacral spondylosis with radiculopathy POD#3 L3-L5 decompression and fusion on 02/04/[address] 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 and low solute intake -> improved diet today Monitor BMP Unintentional weight loss Endoring 60 # weight loss over the past year in setting of chronic pain, "gagging" felt to be due to anxiety, not a swallowing issue Trial of ativan before meals has significantly improved intake since yesterday, plan to continue for now Long discussion with patient and - encouraged PCP f/u and transition to SSRI and PRN Buspar if anxiety persists post-op Leukocytosis WBC 15K-> 13K-> 11K, resolved Likely secondary to steroids No concern for infection at this time Hypertension Normotensive Resume losartan in AM Parkinson's disease Continue carbidopa-levodopa CRISTIAN CPAP as per home settings DVT Prophylaxis: TEDs/SCDs per primary team Code Status: FULL CODE PCP: Ji Banuelos Disposition: anticipate dc tomorrow Care coordinated with Dr. Fish. I spent a total of 35 minutes coordinating, documenting and providing care for this patient excluding time spent in the performance of separately billed services or time spent by another provider/QHP. Admission and Anticipated Discharge Date Admission Date: February 04, 2025 Subjective Seen and examined in follow-up in 310 with at bedside. Able to ambulate with PT in the halls. Eating and meal tolerance significantly improved with trial of Ativan. Does not member the last time he was able to a have 3 meals in 1 day. Discussed importance of good nutrition in regards to postop healing. No fever, chills, lightheadedness, chest pain, shortness of breath, nausea or vomit ing. No dysuria. + Postop flatus. Review of Systems Review of Systems: At least ten systems reviewed and negative except as noted in the HPI. Physical Exam Physical Exam: Gen: WD/WN, NAD, sitting in bedside chair, A&Ox3 HEENT: Normocephalic, atraumatic, mucous membranes moist Lung: Clear to Auscultation bilaterally Heart: Regular rate, regular rhythm Abdomen: Soft, NT, ND Extremities: Spinal dressing c/d/i, +ANAYA drain, no edema Skin: Warm, no rash Results & Data Results & Data Vital Signs (Past 12 Hours) Vital Signs Temp Pulse Resp BP Pulse Ox O2 Del Method 02/07/25 07:54 36.5 C 60 16 124/75 96 Room Air Laboratory Results Short CBC 02/07/25 Range/Units 06:05 WBC 9.89 (4.8-10.8) K/ul Hgb 11.7 L (14.0-18.0) g/dl Hct 32.2 L (42.0-52.0) % Plt Count 226 (130-400) K/uL BMP 02/07/25 06:05 Sodium 130 L Potassium 3.7 Chloride 90 L Carbon Dioxide 31 BUN 13 Creatinine 0.59 L Glucose 96 Calcium 8.7 Diagnostic Findings Lumbar Spine X-Ray 02/04/25 11:15 FL lumbar spine 2-3V CLINICAL HISTORY: L3-L5 DECOMPRESSION AND FUSION COMPARISON STUDY: 10/12/2024 FLUOROSCOPY TIME: 19 seconds FLUOROSCOPY IMAGES: 3 EXPOSURE DOSE: 15 mGy FINDINGS: Fluoroscopy was provided for lumbar metallic fusion. IMPRESSION: Intraoperative fluoroscopy. ACT 112: Negative or not required by law. Electronically signed by: Ashutosh Aiken M.D. 02/04/2025 2:45 PM
[2025-02-07 22:32] VITALS: O2SAT 96
[2025-02-07] MEDS: LOSARTAN POTASSIUM 25 MG TAB PO SCH (22:32)
[2025-02-08 06:19] LABS: Hematocrit (blood only) 31.6 % (42.0-52.0); Hemoglobin 11.4 g/dl (14.0-18.0); Mean Corpuscular Hemoglobin 31.9 pg (25.0-34.0); Mean Corpuscular Volume 88.5 fL (80.0-100.0); Platelet Count 251 K/uL (130-400); RDW Standard Deviation 36.9 fL (36.4-46.3); Red Blood Count 3.57 M/uL (4.70-6.10); White Blood Count 9.67 K/ul (4.8-10.8)
[2025-02-08 06:37] LABS: Anion Gap 7.0 (3-11); Blood Urea Nitrogen 16.0 mg/dl (6-23); Calcium 8.7 mg/dl (8.6-10.3); Carbon Dioxide 33.0 mmol/L (21-32); Chloride 92.0 mmol/L (98-107); Creatinine Clr Calc Pharmacy 117.6 ml/min; Glucose 101.0 mg/dl (70-99(Fasting)); Potassium 3.7 mmol/L (3.5-5.1); Sodium 132.0 mmol/L (136-145)
[2025-02-08 09:03] VITALS: PULSE 76; RESP 16; TEMP 97.7
[2025-02-08] MEDS: SODIUM CHLORIDE 0.9% 500 ML IV ONE ×2 (09:33→13:37)
--- NOTE | 2025-02-08 09:46 | Discharge Summary ---
Date of Service February 08, 2025 Admission HPI Per Admitting Provider This is a 59-year-old male who presents chronic persistent back and leg pain after failing course of nonoperative care is here for surgical invention. Principal Diagnosis Lumbar spondylosis with radiculopathy Discharge Data Allergies Allergy/AdvReac Type Severity Reaction Status Date / Time meperidine [From Demerol] AdvReac Mild Flushing/hot Verified 02/04/25 10:53 feeling Consultations 02/04/25 16:45 Consult Hospitalist Routine Procedures Performed Operation Date: 02/04/25 11:15 Actual Procedures p L3-L5 Decompression and Fusion(Not Applicable) - Kael Alfred DO Ordered Studies 02/04/25 11:15 FL lumbar spine 2-3V Routine Hospital Course (1) Multilevel lumbosacral spondylosis with radiculopathy: Patient with multilevel lumbar decompression fusion trial as well as negative orthopedic for postoperative postop day progressed appropriate. Leg pain improved. ANAYA drain decreasing. Good strength testing. Simply discharged home. Discharge orders instructions from the chart for further review. Total Time Total Time Spent Total Time Spent (In Minutes): 20 minutes Discharge Plan Discharge Items Patient Disposition: Home - Home Health Services Reason For Visit: Two-Level Lumbosacral Spondylosis with Radiculopat Discharge Diagnosis: Lumbar spondylosis with radiculopathy Activity: As commented below Non-emergency contact: Primary Care Provider Call non-emergency contact if: you have any medication questions Follow-up/Referrals: Ji Banuelos PA-C [Primary Care Provider] - (Date & Time 02/14/2025 11:00 AM Provider: Ji Banuelos PA-C [facility] ) Diet: Regular Addtl Attending Provider Instructions: ACTIVITY RECOMMENDATIONS: SELF CARE INSTRUCTIONS AFTER THORACIC/LUMBAR FUSIONS 1. You may walk to your tolerance. It is good exercise for your legs and back. Expect some back and intermittent leg aches and pains. 2. You may perform "counter-top" level activities (make a sandwich, juliana with a project, etc.). 3. No bending or lifting of more than 10 pounds or back twisting of any nature (roll like a log when turning in bed). 4. You may ride in a car for 20-30 minutes at a time. No driving until after your first visit with your doctor. 5. Frequent changes of position and restricting sitting to 30 minutes at a time will help limit the amount of back spasms and stiffness you may experience. 6. You may discontinue the use of ambulatory aids (cane, crutches, etc.) once your strength and confidence allow. 7. You may roof painter the shower and let water strike your incision when you arrive home at least once daily. Do not take a tub bath, sit in a hot tub or go into a swimming pool until after your first recheck in the office. 8. You may resume previous diet. SPECIAL CARE INSTRUCTIONS: VERY IMPORTANT TO READ AND REVIEW A. Your surgical incision has been closed with a cosmetic suture under the skin that will dissolve in about 6 weeks. In 14 days, you can use a pair of clean scissors and cut the suture that is left outside of the skin at the ends of your incision. 1. The small skin tapes can be removed 7 days after surgery if they have not fallen off by that point. 2. You may keep the wound open to air as much as possible to promote healing after post-op day number 5 unless told otherwise by your doctor. 3. If you think the wound looks like it is becoming infected (redness or worsening drainage) and/or you are experiencing fever, chill or worsening back pain and muscle spasms, contact the office so that we may evaluate you as soon as possible. B. Complications are uncommon, but please contact us if you have any signs or symptoms of: 1. wound infection (fever higher than 102.5 degrees F, redness, separation of wound, drainage, or increasing pain from the incision) 2. blood clots in legs (pain, swelling, redness and warmth in legs) 3. urinary tract infection (fever higher than 102.5 degrees F, burning upon urination or increased frequency of urination) 4. nerve problems (inability to walk on your toes or heels, numbness, loss of bowel or bladder control) 5. any other symptoms that concern you C. Please call the office at if you have any concerns or questions about your operation or recovery. D. No smoking! Smoking drastically decreases the chance of a solid fusion. E. Do not take any anti-inflammatory medications (Indocin, Advil, Motrin, Aspirin, Naprosyn, etc.) as these may inhibit the chance of a solid fusion. Tylenol is okay to take for pain. MANAGING PAIN AFTER SPINAL SURGERY 1. Narcotic medication is intended for short-term use and will be provided for surgical pain. Surgical pain usually lasts for a period of 4-6 weeks. Narcotic medication includes Percocet, Vicodin, Darvocet, Tylenol #3 or Lortab. 2. Longer-term pain is more appropriately treated with non-narcotic medication such as Tylenol ES. 3. Muscle spasm is not appropriately treated with narcotics. Muscle relaxers such as Soma, Flexeril or Skelaxin can be used along with Tylenol ES. 4. Remember that we all live with some "aches and pains". This is not unusual or uncommon after an injury or as we get older. a. Back pain is expected and may include muscle spasms for 4 to 6 weeks after surgery. The pain should gradually improve. If the pain worsens for no apparent reason, please contact the office. b. Intermittent leg pain may also be experienced and should not be concerned about unless it worsens for no apparent reason. If so, please contact the office. 5. We will provide appropriate medication within the normal guidelines of their prescribed use. We will also be very cautious and aware of potential abuse and extended duration of patients' medication needs. a. Pain medications are for your comfort and to assist with sleep and rest so that the tissue can heal. They are not provided in order to return to normal activity and should not be used through the day. To do so or worsening pain at night can result from ongoing tissue damage and development of tolerance to the prescribed medicine. 6. Please allow 2-3 days to process refills. Prescriptions will not be mailed but must be picked up at the office. FOLLOW UP VISIT: Keep your scheduled follow-up appointment. Any questions, please call the office at . Pending Studies at Discharge: No Stand-Alone Forms: My Lulu, Smoking Cessation Medications and DC Order Prescriptions: New tramadol 50 mg tablet 50 mg PO Q6H PRN (Reason: pain, moderate) Qty: 30 0RF oxycodone 5 mg tablet 5 mg PO Q6H PRN (Reason: pain) Qty: 30 0RF Continued losartan 50 mg Tablet 25 mg PO BID acetaminophen [Tylenol Extra Strength] 500 mg Capsule 1,000 mg PO Q8H PRN (Reason: Pain) Crexont 87.5-350 mg Capsule,Ir -Extend Rel,Biphase 2 cap PO 5XD Patient Comments: takes on 0600/1000/1400/1800/2300 times Discharge Orders: Discharge Order (Routine); Ordered 02/08/25 Ordered By: Kael Alfred Admission Data Admit Date/Time: 02/04/25 14:33 Attending Provider: Kael Alfred Admit Provider: Kael Alfred Primary Care Provider: Ji Banuelos Other Providers: Ina Casillas; Obie Fish; [facility]
--- NOTE | 2025-02-08 11:12 | Hospitalist Progress Note ---
Date of Service February 08, 2025 Assessment & Plan (1) Multilevel lumbosacral spondylosis with radiculopathy: (2) S/P lumbar spinal fusion: (3) Acute blood loss anemia: (4) Hyponatremia: (5) Leukocytosis: (6) Hypertension: (7) Parkinson disease: (8) Sleep apnea: Plan This is a 59 year old male with PMH significant for hereditary hemochromatosis, dyslipidemia, CRISTIAN, hypertension, Parkinson's disease, history of malignant gastric stromal tumor, and multilevel lumbosacral spondylosis with radiculopathy who underwent L3-L5 decompression and fusion on 02/04/[address] Alfred. We have been consulted for post operative medical management. Multilevel lumbosacral spondylosis with radiculopathy POD#4 L3-L5 decompression and fusion on 02/04/[address] 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 and low solute intake -> improved diet today Repeat BMP for PCP follow up Unintentional weight loss Endorsing 60 # weight loss over the past year in setting of chronic pain, "gagging" felt to be due to anxiety, not a swallowing issue Trial of Ativan before meals has significantly improved intake since yesterday, plan to continue for now TIDM PRN Long discussion with patient and - encouraged PCP f/u and transition to SSRI and PRN Buspar if anxiety persists post-op Leukocytosis WBC 15K-> 13K-> 11K, resolved Likely secondary to steroids No concern for infection at this time Hypertension Normotensive with episode of hypotension this AM, resolved with fluids HOLD losartan until PCP follow up, continue keep BP log at home to determine need for ongoing antihypertensives Parkinson's disease Continue carbidopa-levodopa CRISTIAN CPAP as per home settings DVT Prophylaxis: TEDs/SCDs per primary team Code Status: FULL CODE PCP: Ji Banuelos Disposition: anticipate dc today Care coordinated with Dr. Fish. I spent a total of 40 minutes coordinating, documenting and providing care for this patient excluding time spent in the performance of separately billed services or time spent by another provider/QHP. Admission and Anticipated Discharge Date Admission Date: February 04, 2025 Subjective Seen and examined in follow-up in 310 with at bedside. Eating and meal tolerance has significantly improved with trial of Ativan. No fever, chills, lightheadedness, chest pain, shortness of breath, nausea or vomiting. Had a bowel movement today. Noted to be hypotensive this AM after BP meds resumed. BP improved to 122/73 after 500ml bolus, asymptomatic. Review of Systems Review of Systems: At least ten systems reviewed and negative except as noted in the HPI. Physical Exam Physical Exam: Gen: WD/WN, NAD, resting in bed comfortably, A&Ox3 HEENT: Normocephalic, atraumatic, mucous membranes moist Lung: Clear to Auscultation bilaterally Heart: Regular rate, regular rhythm Abdomen: Soft, NT, ND Extremities: Spinal dressing c/d/i, +ANAYA drain, no edema Skin: Warm, no rash Results & Data Results & Data Vital Signs (Past 12 Hours) Vital Signs Temp Pulse Resp BP BP Pulse Ox O2 Del Method 02/08/25 10:14 122/73 02/08/25 08:00 36.5 C 76 16 70/51 L 66/44 L 96 Room Air Laboratory Results Short CBC 02/08/25 Range/Units 06:00 WBC 9.67 (4.8-10.8) K/ul Hgb 11.4 L (14.0-18.0) g/dl Hct 31.6 L (42.0-52.0) % Plt Count 251 (130-400) K/uL BMP 02/08/25 06:00 Sodium 132 L Potassium 3.7 Chloride 92 L Carbon Dioxide 33 H BUN 16 Creatinine 0.69 Glucose 101 H Calcium 8.7
[2025-02-08 14:24] VITALS: BP 106/69
== END 2025-02-08 15:34 | disposition home or self-care (01) | DRG 427 ==
LOC: ASU 10:52 → PACUINP 14:33 → 3E 18:25
DX: E83.42 Hypomagnesemia; I95.81 Postprocedural hypotension; E87.6 Hypokalemia; D62 Acute posthemorrhagic anemia; M48.061 Spinal stenosis, lumbar region without neurogenic claudication; E78.00 Pure hypercholesterolemia, unspecified; E83.119 Hemochromatosis, unspecified; I10 Essential (primary) hypertension; T38.0X5A Adverse effect of glucocorticoids and synthetic analogues, initial encounter; M47.26 Other spondylosis with radiculopathy, lumbar region; G20.A1 Parkinson's disease without dyskinesia, without mention of fluctuations; M43.16 Spondylolisthesis, lumbar region; Y92.239 Unspecified place in hospital as the place of occurrence of the external cause; R73.9 Hyperglycemia, unspecified; G47.33 Obstructive sleep apnea (adult) (pediatric); E22.2 Syndrome of inappropriate secretion of antidiuretic hormone